=== PATIENT | female | born 1980 | race Caucasian/White ===

== ENCOUNTER → 2017-01-19 | Outpatient (CLI) | payer OTHER | LOC: KOH-I 12:32 | DX: M54.5 Low back pain (principal); M25.551 Pain in right hip | CPT/HCPCS: 72110; 73502 ==

== ENCOUNTER 2020-10-09 01:43 | Emergency (ER) | payer OTHER ==
[2020-10-09 03:39] LABS: HEMOGLOBIN 12.5 gm/dl (12.3-15.3); RED BLOOD COUNT 4.49 M/UL (4.00-5.10)
[2020-10-09 04:08] LABS: BUN/CREATININE RATIO 15 (0-10)
[2020-10-09] MEDS ORDERED: HOLTER MONITOR (05:03)
== END 2020-10-09 05:10 | disposition home or self-care (01) ==
LOC: ER1 01:43
PROVIDERS: Family Medicine
DX: R00.2 Palpitations (principal); R03.0 Elevated blood-pressure reading, without diagnosis of hypertension; R60.0 Localized edema; I12.9 Hypertensive chronic kidney disease with stage 1 through stage 4 chronic kidney disease, or unspecified chronic kidney disease; N18.9 Chronic kidney disease, unspecified; Z79.899 Other long term (current) drug therapy
CPT/HCPCS: 71046; 80053; 82550; 82553; 83874; 84439; 84443; 84484; 85025; 93005; 99285

== ENCOUNTER → 2020-10-19 | Outpatient (CLI) | payer OTHER ==
[~2020-10-19] MED LIST: HOLTER MONITOR; IMITREX25 MG PO
== END ==
LOC: HEART 5 14:39
DX: R00.2 Palpitations (principal)

== ENCOUNTER 2021-02-04 07:57 | Emergency (ER) | payer OTHER ==
[~2021-02-04 07:57] MED LIST changes: -IMITREX25 MG PO
[2021-02-04 08:47] LABS: HEMOGLOBIN 11.7 gm/dl (12.3-15.3); RED BLOOD COUNT 4.07 M/UL (4.00-5.10); WHITE BLOOD COUNT 7.3 K/UL (4.5-11.0)
[2021-02-04] MEDS ORDERED: IMITREX25 MG PO (09:30)
== END 2021-02-04 09:52 | disposition home or self-care (01) ==
LOC: ER1 07:57
PROVIDERS: Physician Assistant
DX: R51.9 Headache, unspecified (principal); I12.9 Hypertensive chronic kidney disease with stage 1 through stage 4 chronic kidney disease, or unspecified chronic kidney disease; N18.9 Chronic kidney disease, unspecified; E78.5 Hyperlipidemia, unspecified
CPT/HCPCS: 80048; 85025; 99284; J7030

== ENCOUNTER → 2021-03-04 | Outpatient (CLI) | payer OTHER ==
[~2021-03-04] MED LIST changes: +IMITREX25 MG PO
[2021-03-04 16:37] LABS: RED BLOOD COUNT 3.97 M/UL (4.00-5.10); WHITE BLOOD COUNT 7.1 K/UL (4.5-11.0)
== END ==
LOC: LAB 13:22
PROVIDERS: Internal Medicine Nephrology
DX: N25.81 Secondary hyperparathyroidism of renal origin (principal); N18.4 Chronic kidney disease, stage 4 (severe)
CPT/HCPCS: 36415; 80069; 83970; 85027

== ENCOUNTER → 2021-04-27 | Outpatient (CLI) | payer OTHER ==
[2021-04-27 15:10] LABS: HEMOGLOBIN 11.5 gm/dl (12.3-15.3); RED BLOOD COUNT 3.93 M/UL (4.00-5.10); WHITE BLOOD COUNT 6.1 K/UL (4.5-11.0)
== END ==
LOC: LAB 14:26
PROVIDERS: Internal Medicine Nephrology
DX: N18.4 Chronic kidney disease, stage 4 (severe) (principal)
CPT/HCPCS: 36415; 80069; 83970; 85027

== ENCOUNTER → 2021-06-08 | Outpatient (CLI) | payer OTHER | LOC: LAB 16:58 | PROVIDERS: Internal Medicine Nephrology | DX: N18.4 Chronic kidney disease, stage 4 (severe) (principal) | CPT/HCPCS: 36415; 80069 ==

== ENCOUNTER → 2021-07-27 | Outpatient (CLI) | payer OTHER ==
[2021-07-27 14:02] LABS: HEMOGLOBIN 10.4 gm/dl (12.3-15.3); RED BLOOD COUNT 3.64 M/UL (4.00-5.10); WHITE BLOOD COUNT 7.3 K/UL (4.5-11.0)
== END ==
LOC: LAB 12:31
PROVIDERS: Internal Medicine Nephrology
DX: N18.5 Chronic kidney disease, stage 5 (principal)
CPT/HCPCS: 36415; 80069; 83970; 85027

== ENCOUNTER → 2021-09-15 | Outpatient (CLI) | payer OTHER | LOC: LAB 14:30 | PROVIDERS: Internal Medicine Nephrology | DX: N18.5 Chronic kidney disease, stage 5 (principal); N25.81 Secondary hyperparathyroidism of renal origin | CPT/HCPCS: 36415; 80053; 83970; 84100 ==

== ENCOUNTER 2021-09-25 15:23 | Emergency (ER) | payer OTHER ==
[~2021-09-25] VITALS: Ht 162.6 cm; Wt 138.8 kg
[2021-09-25 20:28] LABS: HEMOGLOBIN 11.4 gm/dl (12.3-15.3); RED BLOOD COUNT 3.97 M/UL (4.00-5.10); WHITE BLOOD COUNT 7.9 K/UL (4.5-11.0)
== END 2021-09-26 01:40 | disposition home or self-care (01) ==
LOC: ER1 15:23
PROVIDERS: Physician Assistant
DX: U07.1 COVID-19 (principal); Z23 Encounter for immunization; I12.9 Hypertensive chronic kidney disease with stage 1 through stage 4 chronic kidney disease, or unspecified chronic kidney disease; N18.9 Chronic kidney disease, unspecified; E66.01 Morbid (severe) obesity due to excess calories; J45.909 Unspecified asthma, uncomplicated; E78.5 Hyperlipidemia, unspecified
CPT/HCPCS: 80053; 85025; 99283; M0243

== ENCOUNTER → 2021-10-06 | Outpatient (CLI) | payer OTHER ==
[2021-10-07 08:13] LABS: BUN 40 mg/dL (6-24); BUN/CREATININE RATIO 12 (9-23); CALCIUM, SERUM 8.4 mg/dL (8.7-10.2); CARBON DIOXIDE, TOTAL 19 mmol/L (20-29); CHLORIDE, SERUM 103 mmol/L (96-106); CREATININE, SERUM 3.46 mg/dL (0.57-1.00); EGFR IF AFRICN AM 18 (>59); EGFR IF NONAFRICN AM 16 (>59); GLUCOSE, SERUM 153 mg/dL (65-99); PHOSPHORUS, SERUM 4.4 mg/dL (3.0-4.3); POTASSIUM, SERUM 4.6 mmol/L (3.5-5.2); SODIUM, SERUM 138 mmol/L (134-144)
[2021-10-07 12:13] LABS: HBSAG SCREEN Negative (Negative); HEP A AB, IGM Negative (Negative); HEP B CORE AB, IGM Negative (Negative); HEP C VIRUS AB <0.1 (0.0-0.9)
== END ==
LOC: LAB 09:18
PROVIDERS: Internal Medicine Nephrology
DX: N18.5 Chronic kidney disease, stage 5 (principal)
CPT/HCPCS: 36415; 80069; 80074

== ENCOUNTER → 2021-12-09 | Outpatient (CLI) | payer OTHER ==
[2021-12-09 12:01] LABS: HEMOGLOBIN 10.4 gm/dl (12.3-15.3); RED BLOOD COUNT 3.82 M/UL (4.00-5.10); WHITE BLOOD COUNT 6.7 K/UL (4.5-11.0)
== END ==
LOC: LAB 11:18
PROVIDERS: Internal Medicine Nephrology
DX: N18.5 Chronic kidney disease, stage 5 (principal); N25.81 Secondary hyperparathyroidism of renal origin; D63.1 Anemia in chronic kidney disease
CPT/HCPCS: 36415; 80069; 82728; 83540; 83550; 83970; 85025

== ENCOUNTER → 2021-12-15 | Outpatient (CLI) | payer OTHER ==
[2021-12-15 11:55] LABS: HEMOGLOBIN 10.8 gm/dl (12.3-15.3); RED BLOOD COUNT 3.9 M/UL (4.00-5.10); WHITE BLOOD COUNT 7.3 K/UL (4.5-11.0)
[2021-12-16 08:15] LABS: HBSAG SCREEN Negative (Negative); HEP A AB, IGM Negative (Negative); HEP B CORE AB, IGM Negative (Negative); HEP C VIRUS AB <0.1 (0.0-0.9)
== END ==
LOC: LAB 11:13
PROVIDERS: Internal Medicine Nephrology
DX: N18.5 Chronic kidney disease, stage 5 (principal); D63.1 Anemia in chronic kidney disease
CPT/HCPCS: 36415; 80069; 80074; 85025